=== PATIENT | male | born 1950 | race Caucasian/White ===

== ENCOUNTER 2024-01-17 23:32 | Observation (INO) | payer OTHER, SELFPAY ==
[2024-01-17 19:32] VITALS: BMI 32.4
[2024-01-17 19:33] VITALS: BP 164/90
[2024-01-17 19:59] LABS: % Basophils 0.8 % (0-2); % Eosinophils 0.6 % (0-6); % Immature Granulocytes 0.3 % (0-0.5); % Lymphocytes 7.3 % (20.5-51.1); % Monocytes 15.6 % (1.7-9.3); % Neutrophils 75.4 % (42.2-75.2); Absolute Basophils 0.1 10^3/uL (0-0.2); Absolute Eosinophils 0.1 10^3/uL (0-0.7); Absolute Lymphocytes 0.7 10^3/uL (1.2-3.4); Absolute Monocytes 1.4 10^3/uL (0.1-0.6); Absolute Neutrophils 6.8 10^3/uL (1.4-6.5); Hematocrit 49.6 % (39.0-52.0); Hemoglobin 17.1 g/dL (13.0-18.0); Mean Corp Hgb Conc. 34.5 g/dL (33.0-37.0); Mean Corpuscular Hgb 30.5 pg (27.0-31.0); Mean Corpuscular Volume 88.6 fL (80.0-94.0); Mean Platelet Volume 11.1 fL (7.4-10.4); Nucleated Red Blood Cells % 0 % (-); Platelet Count 108 10^3/uL (130-400); Red Cell Dist. Width 14.6 % (11.5-14.5)
[2024-01-17 20:04] LABS: Erythrocyte Sed Rate 16 mm/hour (0-20)
[2024-01-17 20:20] LABS: ALT (SGPT) 28 U/L (0-50); AST (SGOT) 36 U/L (17-59); Albumin 4.1 g/dl (3.5-5.0); Alkaline Phosphatase 77 U/L (38-126); Blood Urea Nitrogen 19 mg/dl (9-20); Calcium 9.4 mg/dl (8.4-10.2); Carbon Dioxide 21 mmol/L (22-30); Chloride 102 mmol/L (98-107); Glucose 87 mg/dl (70-99); Potassium 4.3 mmol/L (3.5-5.1); Sodium 138 mmol/L (135-145); Total Protein 6.7 g/dl (6.3-8.2); Uric Acid 4.3 mg/dl (3.5-8.5); eGFR > 60.00
[2024-01-17 20:22] LABS: NT-proBNP 250 pg/ml
--- NOTE | 2024-01-17 20:22 | ED.GENMED ---
History of Present Illness
General
Chief Complaint: Abdominal Symptoms
Source: patient
Exam Limitations: none
Time Seen by Provider: 01/17/24 19:58
Nursing documentation reviewed up to this point in time: agreed with
History of Present Illness
History of Present Illness:
The patient is a pleasant 73-year-old man who reports left upper abdominal pain and mid upper abdominal pain for several weeks. Patient reports that it seems to come on after he takes his morning medication and generally gets better by the
afternoon. However, over the last 3 days, the pain has been more intense, especially in his epigastric area and has been associated with nausea throughout the day. Patient denies chest pain. He reports the pain gets so bad that he feels short of
breath, however, he denies any specific cough. Patient reports normal bowel movements and denies constipation and diarrhea. Patient denies vomiting. Patient denies black and bloody stools.
Past History
Past History
ED Past Medical History: GERD, HTN, Hypercholesterolemia, NIDDM and Other (PE/DVT)
ED Past Surgical History: Orthopedic
Social History
Tobacco: Former smoker
Alcohol: Occasional
Drug: Other
Personal:
Living: alone
Employment: Other
Family History
Family History: Other
Review of Systems
Review of Systems
Allergies reviewed?: Yes
All Other Systems: ROS reviewed and negative except as documented in HPI and ROS
Constitutional: Reports fatigue
EENT: Reports no symptoms
Respiratory: Reports no symptoms
Cardiac: Reports no symptoms
ABD/GI: Reports abdominal pain, nausea and anorexia
: Reports no symptoms
Musculoskeletal: Reports no symptoms
Skin: Reports no symptoms
Neurological: Reports no symptoms
Endocrine: Reports no symptoms
Hematologic/Lymphatic: Reports no symptoms
Psychiatric: Reports no symptoms
Phy Exam
Physical Exam
Physical Exam:
Physical Exam
General: no apparent distress, not acutely ill
Neck: supple. no meningeal signs. normal psoterior pharynx
Heart: s1/s2 regular rate and rhythm, no murmur. equal radial pulses.
Lungs: no acute respiratory distress. clear bilaterally
Abdomen: Soft, epigastric tenderness, no rebound or guarding, no pulsatile mass. On rectal exam, stool is yellow-brown and Hemoccult negative
Neuro: alert and oriented. no focal neurological deficits
Skin: no rash
Psychiatric: well kept. interactive and cooperative
Extremities: no edema. no calf tenderness. negative homans. good distal pulses
Course
Orders/Labs/Results
Orders:
Orders
01/17/24 19:48
BNP [NT-proBNP] Urgent
C-Reactive Protein Urgent
Complete Blood Count/With Diff Urgent
Comprehensive Metabolic Panel Urgent
Erythrocyte Sed Rate Urgent
Lipase Urgent
Comment: ADD ON
Uric Acid Urgent
01/17/24 20:24
Add On- LAB Urgent
Tests Added?: lipase
01/17/24 21:00
Ondansetron Injectable [Zofran] 4 mg IV NOW STA
01/17/24 21:01
Mag Hydrox/Al Hydrox/Simeth [Maalox] 30 ml Phenobarb/Hyoscy/Atropine/Scop [] 10 ml Viscous Lidocaine 2% [Xylocaine Viscous Cup] 10 ml PO NOW
US Abdomen Complete/Upper Urgent
Comment:
Reason For Exam: epig pain, nausea
01/17/24 21:02
Electrocardiogram (*1) Urgent
Reason for Study: Abdominal Pain
EKG- Treatment ONCE
01/17/24 21:32
Mag Hydrox/Al Hydrox/Simeth [Maalox] 30 ml .ROUTE .STK-MED ONE
Phenobarb/Hyoscy/Atropine/Scop [] 10 ml .ROUTE .STK-MED ONE
01/17/24 21:33
Viscous Lidocaine 2% [Xylocaine Viscous Cup] 15 ml .ROUTE .STK-MED ONE
01/17/24 21:44
Troponin I Urgent
01/17/24 22:17
Pantoprazole [Protonix IV] 40 mg IV NOW STA
Abnormal Lab Results
01/17/24
19:48
RDW 14.6 H %
(11.5-14.5)
Plt Count 108 L 10^3/uL
(130-400)
MPV 11.1 H fL
(7.4-10.4)
Absolute Neuts (auto) 6.8 H 10^3/uL
(1.4-6.5)
Absolute Lymphs (auto) 0.7 L 10^3/uL
(1.2-3.4)
Absolute Monos (auto) 1.4 H 10^3/uL
(0.1-0.6)
Neutrophils % 75.4 H %
(42.2-75.2)
Lymphocytes % 7.3 L %
(20.5-51.1)
Monocytes % 15.6 H %
(1.7-9.3)
Carbon Dioxide 21 L mmol/L
(22-30)
Total Bilirubin 2.0 H mg/dl
(0.2-1.3)
C-Reactive Protein 70.90 H mg/L
(0.0-10.00)
01/17/24 19:48
01/17/24 19:48
Vital Signs
Initial and Last Documented VS:
Initial Vital Signs
Temp Pulse Resp BP Pulse Ox
98.3 F 100 24 164/90 95
01/17/24 19:33 01/17/24 19:33 01/17/24 19:33 01/17/24 19:33 01/17/24 19:33
Last Documented Vital Signs
Temp Pulse Resp BP Pulse Ox
98.3 F 100 24 157/78 95
01/17/24 19:33 01/17/24 19:33 01/17/24 19:33 01/17/24 21:08 01/17/24 19:33
MDM/Problems Addressed
Differential Diagnosis Includes:
Peptic ulcer disease, acute cholecystitis, biliary colic, gastritis, small bowel obstruction, acute coronary syndrome
MDM/Problems Addressed:
Patient presents with acute epigastric pain
Chronic conditions affecting care:
GERD
Acute Exacerbation and/or Progression of Chronic Illness:
Patient likely has acute exacerbation of chronic GERD
*Radiology
Radiology exam reviewed: radiology read reviewed
*Pulse Oximetry
Patient hypoxic: no
*EKG
Interpreted by ED Provider?: Yes
Interpretation: abnormal
Comparison EKG: changes noted (pvcs)
Rate: normal
Rhythm: sinus
[place]: left axis deviation
Interval: normal interval
QRS Pattern: normal QRS
Ischemia: non-specific ST changes
*Washroom Cleaner Interpretation
Rate: normal
Interpretation: normal
Rhythm: sinus
*Critical Care Note
Total Time (30-74mins, 75-104mins- exclusive of procedures): Not Applicable
Data Reviewed
Review of Other/Old Records Reveals: Discharge Summary (Discharge summary reviewed from hospitalist from 2022 when patient was admitted for complicated UTI and poorly controlled diabetes)
Source: patient
Patient Management
Discussion with other providers: Hospitalist and Other (Dr. Diaz Streeter agreed to evaluate patient on consult)
ED Attending Note
-
Portions of this chart may have been created with voice recognition software.� Occasional wrong word or��sound alike� substitutions may have occurred due to the inherent limitations of voice recognition software.
Discharge Plan
Departure
Patient Disposition: Admit
Date of Disposition: 01/17/24
Time of Disposition: 22:50
Admit to: Med/Surg
Presentation/result/management discussed w/ accepting MD/DO: Hospitalist
Patient with high blood pressure during this ER visit?: Yes
Condition: Good
Covid-19: Not Applicable
Discharge Problem:
Symptomatic gallbladder disease
Prescriptions:
New
lansoprazole [Prevacid] 30 mg capsule,delayed release(DR/EC)
30 mg PO DAILY Qty: 14 0RF
Rx Instructions:
Take in morning
ondansetron 4 mg tablet,disintegrating
4 mg PO TID PRN (Reason: nausea and vomiting) Qty: 14 0RF
No Action
Eliquis 2.5 mg Tablet
2.5 mg PO BID
losartan 25 mg Tablet
25 mg DAILY
allopurinol 100 mg Tablet
100 mg PO DAILY
simvastatin 20 mg Tablet
20 mg PO HS
(DME) OneTouch Verio test strips Strip
Qty: 100 0RF
Rx Instructions:
Test blood sugar before breakfast dinner and bedtime
E11.65
(DME) lancets [OneTouch Delica Lancets] 33 gauge Misc
Qty: 100 0RF
Rx Instructions:
Test before breakfast dinner and bedtime
e11.65
tamsulosin 0.4 mg Capsule
0.4 mg PO DAILY Qty: 30 0RF
folic acid 1 mg Tablet
1 mg PO DAILY Qty: 30 0RF
polyethylene glycol 3350 17 gram Powder In Packet
17 g PO DAILY Qty: 14 0RF
insulin aspart U-100 [Novolog FlexPen U-100 Insulin] 100 unit/mL (3 mL) Insulin Pen
10 unit SC AC Qty: 15 0RF
thiamine HCl (vitamin B1) 100 mg Tablet
100 mg PO BID Qty: 60 0RF
Januvia 100 mg Tablet
100 mg PO DAILY Qty: 30 0RF
levofloxacin 500 mg tablet
500 mg PO DAILY Qty: 8 0RF
insulin glargine [Lantus Solostar U-100 Insulin] 100 unit/mL (3 mL) insulin pen
18 unit SC DAILY Qty: 15 0RF
Rx Instructions:
Take in evenings. Adjust dose as needed per your provider.
Referrals:
UNKNOWN - PT DOES,NOT KNOW [Unknown Provider] -
Interventions
Interventions:
*Risk Screen - Suicide Last Done: 01/17/24 19:33
*General Assessment Last Done: 01/17/24 21:08
*Neglect/Abuse Screening Last Done: 01/17/24 19:33
*ED COVID-19 Vaccine History Last Done: 01/17/24 21:08
UF-Eyguur-Jlertnfflh Assessment Last Done: 01/17/24 21:08
Discharge Date and Time
Print Language: SINHALA
[2024-01-17 20:37] LABS: Lipase 80 U/L (23-300)
[2024-01-17 21:08] VITALS: BP 157/78
[2024-01-17] MEDS: MAALOX 50 PO (21:36)
[2024-01-17] MEDS: ZOFRAN 4 MG IV (21:36)
[2024-01-17 22:04] VITALS: BP 150/96
[2024-01-17 22:23] LABS: Troponin I 0.017 ng/ml
[2024-01-17] MEDS: PROTONIX IV 40 MG IV (22:32)
--- NOTE | 2024-01-17 23:45 | HPS.HSE ---
Addendum entered and electronically signed by Jean Plunkett DO 01/18/24 00:18:
Patient seen and examined independently. Agree with findings and plan as set forth by Winsome Zamudio PA-C.
Patient is a 73y M with PMH significant for HTN, DM-II and remote h/o PE who presents to abdominal pain x 3 days. Patient states that pain started on Wednesday and was initially in the L abdomen. Pain has since radiated to the mid abdomen /
epigastric region. He has had nausea and 'dry heaves'. He reports loose, non-bloody stools. Patient reports fever at home to 101. In the ED patient is afebrile. Abd US was done showing some mild GB wall thickening and stones.
Ass:
Abdominal Pain
Benign Hypertension
DM-II
History of PE
Rheumatoid Arthritis
History of Gout
Plan:
Observe overnight for further evaluation and treatment.
? acute cholecystitis; however, pain syndrome is not typical and US findings are not impressive.
Check CT A/P for further evaluation. ? colitis / diverticulitis.
IV Zosyn for now.
NPO, IVFs, supportive care including pain control, etc.
Hold Eliquis for now.
Follow for any new / worsening symptoms.
Original Note:
Family Physician
-
Family Physician: Keith Romero
Chief Complaint
-
Abdominal Pain
History of Present Illness
Patient is a 73 y/o male past medical history of diabetes, hypertension, and pulmonary embolism who presents with adbominal pain. Patient reports worsening abdominal pain over the past week. He initially noted the pain was worse in the morning
after taking his pills and then would improve, but over the past 3 days pain has been constant. He notes pain more on the left side and then radiating to the epigastric region. He reports nausea without vomiting. He reports chronic loose stools,
but note more diarrhea recently. Patient was afebrile upon arrival to the emergency department, but reports fevers at home as high as 101F.
Medical History
Past Medical History
Past Medical History: Reports Other
Additional Past Medical History:
Diabetes Mellitus, Type II
Essential Hypertension
Hyperlipidemia
Obesity
Pulmonary Embolism
Rheumatoid Arthritis
Gout
Past Surgical History: Reports Other
Additional Past Surgical History:
Bilateral TKA
Liposuction
Social History
Tobacco: Non-smoker
Alcohol: Occasional
Drug: None
Family History
Family History: Other (Mother: [place] at 47; Brother: [place] at 66)
Allergies / Home Medications
Allergies reflects when Allergies were last updated in [facility].
Home Medications with original date entered in [facility]
Allergy/Medication List:
Allergies
Allergy/AdvReac Type Severity Reaction Status Date / Time
No Known Allergies Allergy Verified 01/17/24 19:38
Home Medications
allopurinol 100 mg tablet 100 mg PO DAILY Gout 07/15/22
apixaban 2.5 mg tablet (Eliquis) 2.5 mg PO BID Blood clot prevention/tx 07/15/22
simvastatin 20 mg tablet 20 mg PO HS High cholesterol 07/15/22
tamsulosin 0.4 mg capsule 0.4 mg PO DAILY #30 caps 07/18/22
colchicine 0.6 mg tablet 0.6 mg PO BID 01/17/24
empagliflozin 10 mg tablet (Jardiance) 10 mg PO DAILY 01/17/24
gabapentin 300 mg capsule 300 mg PO BID 01/17/24
hydroxychloroquine 200 mg tablet 200 mg PO BID 01/17/24
losartan 100 mg-hydrochlorothiazide 25 mg tablet 1 tab PO DAILY 01/17/24
prednisone 2.5 mg tablet 2.5 mg PO DAILY 01/17/24
Review of Systems
-
A 12 point ROS was completed and negative except as noted: Yes
Constitutional: Reports Fever
Respiratory: Denies Cough or Trouble Breathing
Cardiac: Denies Chest Pain or Palpitations
Abdomen/GI: Reports See HPI
Physical Exam
Vital Signs
Vital Signs
Temp Pulse Resp BP Pulse Ox
98.3 F 100 24 150/96 93
01/17/24 19:33 01/17/24 19:33 01/17/24 19:33 01/17/24 22:04 01/17/24 21:30
Physical Exam
General: Comfortable and Conversant
HEENT: Anicteric and Moist mucous membranes
Respiratory: Clear and Non Labored Respirations
Cardiac: S1/S2, Regular Rhythm and Murmur (2/6 Systolic Murmur heard best at right upper sternal border)
GI: Soft, Tender (Left middle and lower regions with some voluntary guarding), Organomegaly (Mild hepatomegaly) and Other (Protuberant)
Rectal: Deferred by Provider
Musculoskeletal: No Clubbing, No Cyanosis and No Edema
Skin: Warm and Dry
Neuro: Awake, Oriented and Nonfocal/grossly intact
Psych: Calm
Laboratory Results
-
01/17/24 19:48
01/17/24 19:48
Laboratory Results
Total Bilirubin 2.0 mg/dl (0.2-1.3) H 01/17/24 19:48
AST 36 U/L (17-59) 01/17/24 19:48
ALT 28 U/L (0-50) 01/17/24 19:48
Alkaline Phosphatase 77 U/L (38-126) 01/17/24 19:48
Troponin I Cancelled 01/17/24 23:45
Lipase 80 U/L (23-300) 01/17/24 19:48
Abdomen Ultrasound:
1. Cholelithiasis and mild diffuse gallbladder wall thickening.
2. Moderate diffuse hepatic steatosis and mild hepatomegaly.
3. No sonographic evidence for biliary obstruction.
4. Moderate splenomegaly.
5. Moderate chronic bilateral renal disease.
Data Reviewed
-
Ultrasound: Report Reviewed by me
Lab Data: Labs Reviewed by me
Impression/Plan
-
Abdominal Pain, possibly differential include cholecystitis, gastritis, colitis/diverticulitis
-Surgery consulted by ED for possible cholecystitis given mild GB wall thickening on ultrasound
-Check Abd/Pelvis CT scan due to more left sided symptoms
-Continue Zosyn
-Continue NPO
Diabetes Mellitus, Type II
-Hold Jardiance while NPO
-Monitor sugars and continue coverage insulin
Essential Hypertension
-Continue losartan with hold parameters
Hyperlipidemia
-Hold simvastatin
Pulmonary Embolism
-Hold Eliquis pending surgical eval
Rheumatoid Arthritis
-Continue prednisone
-Hold hydroxychloroquine
Gout
-Continue allopurinol and colchicine
DVT proph: SCDs
Code Status: Full Code
[2024-01-18] VITALS (7 sets, daily range): BP systolic 103–140; BP diastolic 47–83
[2024-01-18] MEDS: OMNIPAQUE 50 ML PO (00:04)
[2024-01-18] MEDS: ZOSYN 50 IV (03:06)
[2024-01-18] MEDS: DILAUDID 0.25 MG IV (03:06)
[2024-01-18] MEDS: TYLENOL 650 MG PO (03:53)
[2024-01-18 05:42] LABS: Glucose - Point of Care 91 mg/dl (70-99)
[2024-01-18 07:37] LABS: Glucose - Point of Care 87 mg/dl (70-99)
[2024-01-18 08:11] LABS: Hematocrit 45.5 % (39.0-52.0); Hemoglobin 15.5 g/dL (13.0-18.0); Mean Corp Hgb Conc. 34.1 g/dL (33.0-37.0); Mean Corpuscular Hgb 30.6 pg (27.0-31.0); Mean Corpuscular Volume 89.7 fL (80.0-94.0); Mean Platelet Volume 11.3 fL (7.4-10.4); Platelet Count 101 10^3/uL (130-400); Red Blood Cell Count 5.07 10^6/uL (4.70-6.10); Red Cell Dist. Width 14.6 % (11.5-14.5); White Blood Cell Count 7.3 10^3/uL (4.8-10.8)
[2024-01-18] MEDS: FLOMAX 0.4 MG PO (08:36)
[2024-01-18] MEDS: ZYLOPRIM 100 MG PO (08:36)
[2024-01-18] MEDS: NEURONTIN 300 MG PO ×2 (08:36→21:16)
[2024-01-18] MEDS: DELTASONE 2.5 MG PO (08:37)
[2024-01-18] MEDS: NSS (PRESERVATIVE FREE) 10 ML IV (08:37)
[2024-01-18] MEDS: COLCHICINE 0.6 MG PO ×2 (08:37→21:15)
[2024-01-18] MEDS: COZAAR 100 MG PO (08:37)
[2024-01-18] MEDS: PROTONIX IV 40 MG IV (08:37)
--- NOTE | 2024-01-18 08:43 | CON.GS ---
Addendum entered and electronically signed by Dmitriy Tee MD 01/18/24 09:39:
Patient seen and examined.
Patient is a 73 yo M with a PMH of obesity, HTN, HLD, NIDDM, RA (on low-dose prednisone), provoked DVT/PE following orthopedic surgery (on Eliquis, LD > 48hrs) s/p bilateral TKA, and s/p liposuction, who presents with intermittent LEFT sided
abdominal discomfort. He states that his symptoms initially began on Wednesday (01/14) his symptoms have persisted since that time, however, currently he states that he is pain-free. He reports intermittent episodes of the preceding months.
Episodes would occur in the morning shortly following taking his pills. He reports LEFT sided and more central abdominal discomfort. Previous episodes would last a few hours before self resolving. No He reports a fever of 101 at home prior to
presentation, but none previously or since that time. Ne nausea or vomiting. No jaundice, pale stools, or tea colored urine.
Gen: NAD
Abd: obese, soft, NT/ND, non-peritoneal, negative Riley's sign, enlarged liver and spleen
Patient is a 73 yo M p/w intermittent episodes of LEFT sided abdominal discomfort.
Symptoms certainly not classic for cholecystitis given the location of his pain and radiographic imaging. That being said, patients with diabetes can present in an atypical fashion. Given the intermittent nature, presence of cholelithiasis, and
mildly elevated bilirubin, cholecystitis is certainly in the differential and the most likely cause for his symptoms. Differential also includes discomfort from splenomegaly, gastritis, or ulcerative disease. Ultrasound notable for mild wall
thickening, cholelithiasis, but negative sonographic Riley's sign. CT scan imaging notable for cholelithiasis, but largely normal-appearing gallbladder without significant wall thickness, edema, or inflammatory stranding. Currently symptoms have
resolved. Recommend continued medical management with bowel rest. Plan for HIDA scan to rule out cystic duct obstruction and help with diagnosis. If positive will plan on cholecystectomy. If negative would plan on trial of low fat diet and
discharge with GI follow-up. All questions answered.
--Keep NPO
--Check HIDA scan
--Continue to hold Eliquis pending imaging findings
--Will fractionate bilirubin
--Medical management as per primary team
Original Note:
Consultation
-
Date/Time Consultation Requested: 01/18/24136
Requesting Provider: Lizz
Medical History
-
Chief Complaint: Abdominal pain
History of Present Illness:
Mr. Wen is a 73 yo male with a h/o DM, PE on Eliquis (LD 01/15/24), and RA on low dose prednisone who presents with abdominal pain. He notes that he has had intermittent epigastric pain for the past 3 months which lasts for about 3-4 hours and then
self resolves. He notes his pain usually begins in the morning after taking his medications. On Wednesday (01/14) he developed a epigastric and left upper quadrant pain which was more severe than his typical pain and did not resolve. He noted some
nausea with dry heaves as well. He has not eaten or taken his medications since Wednesday given his symptoms. He reported a fever of 101 at home on presented to the ED but has been afebrile since admission. Today, he notes the pain has resolved. He
does have mild tenderness felt on the left abdomen with deep palpation to the right mid to upper abdomen on exam. He denies fevers, chills, acholic stools, or changes to his urine.
Past Medical History
Past Medical History: HTN, Hypercholesterolemia, NIDDM and Other (Provoked PE on Eliquis, RA, gout)
Past Surgical History: Orthopedic (BL TKA) and Other (abdominoplasty )
Social History
Tobacco: Non-Smoker
Alcohol: Occasional
Family History
Family History: Reviewed & Not Pertinent
Allergies / Home Medications
Allergy/AdvReac Type Severity Reaction Status Date / Time
No Known Allergies Allergy Verified 01/17/24 19:38
�Medication �Instructions �Recorded �Confirmed �Type
allopurinol 100 mg tablet 100 mg PO DAILY Gout 07/15/22 01/17/24 History
apixaban 2.5 mg tablet (Eliquis) 2.5 mg PO BID Blood clot 07/15/22 01/17/24 History
prevention/tx
simvastatin 20 mg tablet 20 mg PO HS High cholesterol 07/15/22 01/17/24 History
tamsulosin 0.4 mg capsule 0.4 mg PO DAILY #30 caps 07/18/22 01/17/24 Rx
colchicine 0.6 mg tablet 0.6 mg PO BID 01/17/24 01/17/24 History
empagliflozin 10 mg tablet 10 mg PO DAILY 01/17/24 01/17/24 History
(Jardiance)
gabapentin 300 mg capsule 300 mg PO BID 01/17/24 01/17/24 History
hydroxychloroquine 200 mg tablet 200 mg PO BID 01/17/24 01/17/24 History
losartan 100 1 tab PO DAILY 01/17/24 01/17/24 History
mg-hydrochlorothiazide 25 mg tablet
prednisone 2.5 mg tablet 2.5 mg PO DAILY 01/17/24 01/17/24 History
Review of Systems
-
History Source: Patient
All other systems: Negative unless noted
A 10 point review of systems was completed, and was negative except as per HPI.
Physical Exam
Vital Signs
Temp Pulse Resp BP Pulse Ox
98.2 F 76 16 119/68 94
01/18/24 07:15 01/18/24 07:15 01/18/24 07:15 01/18/24 07:15 01/18/24 07:15
01/17/24 01/18/24 01/19/24
06:59 06:59 06:59
Actual Weight 108.3 kg
Body Mass Index (BMI) 32.4
Lab Results
01/18/24 07:00
WBC 7.3 10^3/uL (4.8-10.8) 01/18/24 07:00
Hgb 15.5 g/dL (13.0-18.0) 01/18/24 07:00
Hct 45.5 % (39.0-52.0) 01/18/24 07:00
Plt Count 101 10^3/uL (130-400) L 01/18/24 07:00
Abs Immat Gran (auto) 0.0 10^3/uL (0-0.05) 01/17/24 19:48
Neutrophils % 75.4 % (42.2-75.2) H 01/17/24 19:48
Physical Exam
General: Well Developed, Well Nourished and No Apparent Distress
HEENT: Moist Mucous Membranes
Respiratory: Non Labored Respirations
GI: Soft, Non Distended, Tender (discomfort on left side when right hemiabdomen deeply palpated), Obese and Other (diastasis recti)
Skin: Warm and Dry; Negative Jaundice
Neuro: Awake, Alert and AO x 3
Psych: Calm
Data Reviewed
-
CT Scan: Image Personally Visualized and interpreted, Report Reviewed by me, Discussed with Physician and Discussed with Patient
Ultrasound: Image Personally Visualized and interpreted, Report Reviewed by me, Discussed with Physician and Discussed with Patient
Labs: Labs Reviewed by me, Discussed with Physician and Discussed with Patient
Old Records: Reviewed
Assessment / Plan
-
73 yo male with h/o DM, PE on Eliquis (LD 01/15/24), and RA on low dose prednisone presenting with 3 days of epigastric and left sided abdominal pain and fever at home. US with cholelithiasis noted and mild gallbladder wall thickening. CT without
significant acute abdominal pathology. Afebrile since presentation with stable vital signs. Bilirubin mildly elevated to 2.0 on presentation, down to 1.6 today with normal lipase. No leukocytosis present although neutrophils elevated. Location of
pain would be atypical for ACC or biliary colic but given episodic nature and associated nausea, etc his pain may be gallbladder related
--Keep NPO
--Check HIDA scan
--Continue to hold Eliquis pending imaging findings
--Will fractionate bilirubin
--Medical management as per primary team
[2024-01-18 08:52] LABS: ALT (SGPT) 26 U/L (0-50); AST (SGOT) 34 U/L (17-59); Albumin 3.4 g/dl (3.5-5.0); Alkaline Phosphatase 67 U/L (38-126); Blood Urea Nitrogen 18 mg/dl (9-20); Calcium 8.6 mg/dl (8.4-10.2); Carbon Dioxide 24 mmol/L (22-30); Chloride 100 mmol/L (98-107); Estimated Creatinine Clearance 68 ml/min; Glucose 78 mg/dl (70-99); Potassium 4.2 mmol/L (3.5-5.1); Sodium 137 mmol/L (135-145); Total Bilirubin 1.6 mg/dl (0.2-1.3); Total Protein 5.9 g/dl (6.3-8.2); eGFR > 60.00
[2024-01-18 09:23] LABS: Glycohemoglobin (HgbA1c) 5.4 % (4.0-5.6)
[2024-01-18 10:41] LABS: Direct Bilirubin 0.7 mg/dl (0.0-0.4)
[2024-01-18 13:01] LABS: Glucose - Point of Care 89 mg/dl (70-99)
--- NOTE | 2024-01-18 13:05 | W.PN.SURGUPD ---
Surgical Update
Surgical Update
S/B: Patient seen and examined at bedside. Still pain free and denies nausea.
A/R: HIDA normal, reviewed results with patient. Prior imaging without ACC. No OR planned today. Will do PO challenge with low fat diet and would continue LFD upon discharge given ?biliary colic. Ok for discharge from surgical standpoint if no
return of pain with eating. Would recommend continued outpatient GI work up and surgical follow up in the coming weeks.
--- NOTE | 2024-01-18 13:33 | W.PN.HOSP.TC ---
Today's Communication/Plan
-
trial diet
ppi iv
tentative dc if tolerating diet
Assessment / Plan
Assessment / Plan
Physical Exam
General: Comfortable and Conversant
HEENT: Anicteric and Moist mucous membranes
Respiratory: Clear and Non Labored Respirations
Cardiac: S1/S2, Regular Rhythm and Murmur (2/6 Systolic Murmur heard best at right upper sternal border)
GI: Soft, nontender, non distended
Rectal: Deferred by Provider
Musculoskeletal: No Clubbing, No Cyanosis and No Edema
Skin: Warm and Dry
Neuro: Awake, Oriented and Nonfocal/grossly intact
Psych: Calm
Abdominal Pain
-most likely 2/2 gastritis - appears to have been chronic issues for 3 months, with worsening (started prednisone 2.5 mg daily - 3 weeks ago)
-HIDA negative
-PPI IV
-GI outpatient
-Reach out to rheum outpatient for possible dc of steroids
-No indication for abx
-Trial LFT
-will benefit from
Diabetes Mellitus, Type II
-Monitor sugars and continue coverage insulin
-appreciate surg recs - no clear evidence of acute pathology in the abdomen
-On Mounjaro - 30lb intentional weight loss; no unintentional weight loss; is having BMs
Essential Hypertension
-Continue losartan with hold parameters
Hyperlipidemia
-Simvastatin
Pulmonary Embolism
-Eliquis
Rheumatoid Arthritis
-Continue prednisone
- hydroxychloroquine
Gout
-Continue allopurinol and colchicine
DVT proph: Eliquis
Code Status: Full Code
Anticipated Discharge: Within 24 hours
Subjective/Interval History
-
Date of Service: January 18, 2024
pain improved but still present
Objective Data
-
Labs:
Laboratory Results
01/18/24
07:00
WBC 7.3
Hgb 15.5
Hct 45.5
Plt Count 101 L
Sodium 137
Potassium 4.2
Chloride 100
Carbon Dioxide 24
BUN 18
Creatinine 1.2
Glucose 78
Calcium 8.6
Total Bilirubin 1.6 H
AST 34
ALT 26
Alkaline Phosphatase 67
Vital Signs:
Vital Signs
Temp Pulse Resp BP Pulse Ox
98.2 F 76 16 119/68 94
01/18/24 07:15 01/18/24 07:15 01/18/24 07:15 01/18/24 07:15 01/18/24 07:15
Review of Systems
-
History Source: Patient
All other systems: Not reviewed unless documented
Physical Exam
-
General: No Apparent Distress
HEENT: PERRLA
Respiratory: Clear to Auscultation; Negative Wheezes
Cardiac: Regular Rhythm and S1/S2
GI: Soft and Nontender
Musculoskeletal: No Edema
Skin: Warm and Dry; Negative Rash
Neuro: AO x 3
Psych: Calm
Data Reviewed
-
Diagnostic Radiology: Image personally visualized and interpreted and Report Reviewed by me
CT Scan: Image personally visualized and interpreted and Report Reviewed by me
Medical Tests (Nuc Med, Echo etc): Report Reviewed by me
Labs: Labs Reviewed by me
[2024-01-18 14:32] LABS: Troponin I < 0.012 ng/ml
--- NOTE | 2024-01-18 14:56 | CM ---
Addendum entered by Yesenia Meeks 01/18/24 15:00:
PCP: Keith Romero
Pharmacy: [facility]
Denies any housing/utilities/food/transportation insecurities.
Original Note:
Patient seen at bedside. Observation form explained & signed. In chart.
Dx: abdominal pain
Patient lives in a 1 story home alone, no steps to enter.
PLOF: Independent, no device, drives
no anticipated needs.
PLAN: Discharge to home when stable, no needs.
Patient drove to hospital.
[2024-01-18 17:26] LABS: Glucose - Point of Care 94 mg/dl (70-99)
[2024-01-18] MEDS: LIPITOR 10 MG PO (17:35)
[2024-01-18 20:10] LABS: Troponin I < 0.012 ng/ml
[2024-01-18] MEDS: PLAQUENIL 200 MG PO (21:16)
[2024-01-18] MEDS: ELIQUIS 2.5 MG PO (21:17)
[2024-01-18] MEDS: ZOFRAN 4 MG IV (21:50)
--- NOTE | 2024-01-18 21:50 | RR ---
A Rapid Response was called on this patient, please see Rapid Response form.
[2024-01-18 22:01] LABS: Glucose - Point of Care 107 mg/dl (70-99)
[2024-01-18] MEDS: CARDIZEM 5 MG IV (22:01)
[2024-01-18] MEDS: XOPENEX 1.25 MG INHALANT SOLUTION INH (22:02)
[2024-01-18] MEDS: MORPHINE SULFATE 1 MG IV (22:05)
[2024-01-18] MEDS: NITROSTAT (SUBLINGUAL) 0.4 MG SL (22:15)
[2024-01-18 22:19] LABS: Hematocrit 47.9 % (39.0-52.0); Hemoglobin 16.7 g/dL (13.0-18.0); Mean Corp Hgb Conc. 34.9 g/dL (33.0-37.0); Mean Corpuscular Hgb 30.5 pg (27.0-31.0); Mean Corpuscular Volume 87.4 fL (80.0-94.0); Mean Platelet Volume 10.6 fL (7.4-10.4); Platelet Count 108 10^3/uL (130-400); Red Blood Cell Count 5.48 10^6/uL (4.70-6.10); Red Cell Dist. Width 14.6 % (11.5-14.5); White Blood Cell Count 7.8 10^3/uL (4.8-10.8)
[2024-01-18] MEDS: PEPCID 20 MG IV (22:19)
[2024-01-18 22:24] LABS: INR 1.08; PT 13.8 Sec (11.4-14.6)
[2024-01-18 22:25] LABS: ALT (SGPT) 30 U/L (0-50); APTT 28.2 Sec (23.4-35.0); AST (SGOT) 40 U/L (17-59); Albumin 3.7 g/dl (3.5-5.0); Alkaline Phosphatase 83 U/L (38-126); Blood Urea Nitrogen 20 mg/dl (9-20); Calcium 9.5 mg/dl (8.4-10.2); Carbon Dioxide 26 mmol/L (22-30); Chloride 100 mmol/L (98-107); Estimated Creatinine Clearance 68 ml/min; Glucose 100 mg/dl (70-99); Potassium 4.1 mmol/L (3.5-5.1); Sodium 135 mmol/L (135-145); Total Bilirubin 1.7 mg/dl (0.2-1.3); Total Protein 6.1 g/dl (6.3-8.2); eGFR > 60.00
--- NOTE | 2024-01-18 22:25 | W.PN.UPDATE ---
Update Note
Progress Note Update
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
Patient complained of chest pain associated with difficult breathing, describes his pain as pressure at the sternum area, initially he mentioned as non radiating, later mentioned that radiated the LT shoulder for few seconds.
Afebrile, BP 129/89, SPO2 96% on 2 L of O2, RR 22, hr 160s to 170s.
Patient admitted with abdominal epigastric pain, Current sternum pressure not clear if it GERD related pain versus cardiac, last troponin x2 are neg.
Cardizem 5 mg IV given, Nitro sublingual given x1 with no relief, morphine 1 mg IV, one time, and Xopenex for SOB
-Patient still looks in distress and complaining of chest pain 11/02, hr still in 160s. EKG shows SVT.
-Will repeat troponin, chest CT PE, cbc, bmp, mag.
-One time IV Pepcid given.
- around 20 mins after Hr down to 80s, and pain subsides.
- Transfer to IMU
-Patient also requested to change from full code to limited DNR. NO intubation or ventilator but he would like to receive CPR and pressors
Repeated Troponin is neg
Chest CT Shows
1. No CTA evidence for acute central pulmonary arterial embolus.
2. MILD PULMONARY ARTERIAL HYPERTENSION with distention of the central pulmonary arteries.
3. Moderate calcification in the aortic valve.
4. Moderate mediastinal lipomatosis.
5. Mildly decreased bilateral lung volumes with a mild to moderate amount of scarring and subsegmental atelectasis in both lower lungs.
[2024-01-18 22:37] LABS: Troponin I 0.013 ng/ml
--- NOTE | 2024-01-18 22:50 | PTCARENOTE ---
Pt complained of SOB, nausea and chest pressure at 2150, diaphoretic and in distress. VS 129/89, Hr166, T 100.3, RR 24, pox 94%RA, blood sugar 107. Rapid response called, see MAR for med administration. chest pain resolved within the 5 min of nitro
administration. Pt transferred to ICU.
[2024-01-18 23:04] LABS: Magnesium 2.1 mg/dl (1.6-2.3)
--- NOTE | 2024-01-18 23:50 | PTCARENOTE ---
rec`d pt from the med surg floor as a rapid response. report of chest pain and SOB. HR 170s. POX 90s. stat meds given by previous RN (see MAR). CT and chest x ray done. pt now admin to ICU. pt states he is not in pain anymore. SR to ST on monitor.
HR 90s-100s. POX 92-94% on 4L. afebrile. diminished lung sounds. pt uses urinal. clear, yellow urine. left AC 20 and left W 20 flushed and patent. pt states he does not want to intubated for future reference. pt also states he does not want any
family notified. call davalos in reach, safe environment maintained.
[2024-01-19] VITALS (22 sets, daily range): BP systolic 93–148; BP diastolic 47–94; BMI 33.3
[2024-01-19 03:48] LABS: Hematocrit 44.9 % (39.0-52.0); Hemoglobin 15.6 g/dL (13.0-18.0); Mean Corp Hgb Conc. 34.7 g/dL (33.0-37.0); Mean Corpuscular Hgb 30.7 pg (27.0-31.0); Mean Corpuscular Volume 88.4 fL (80.0-94.0); Mean Platelet Volume 10.9 fL (7.4-10.4); Platelet Count 106 10^3/uL (130-400); Red Blood Cell Count 5.08 10^6/uL (4.70-6.10); Red Cell Dist. Width 14.6 % (11.5-14.5); White Blood Cell Count 6.8 10^3/uL (4.8-10.8)
[2024-01-19 04:08] LABS: ALT (SGPT) 31 U/L (0-50); AST (SGOT) 38 U/L (17-59); Albumin 3.3 g/dl (3.5-5.0); Alkaline Phosphatase 80 U/L (38-126); Blood Urea Nitrogen 19 mg/dl (9-20); Calcium 9.2 mg/dl (8.4-10.2); Carbon Dioxide 27 mmol/L (22-30); Chloride 102 mmol/L (98-107); Estimated Creatinine Clearance 68 ml/min; Glucose 123 mg/dl (70-99); Sodium 136 mmol/L (135-145); Total Bilirubin 1.4 mg/dl (0.2-1.3); Total Protein 5.8 g/dl (6.3-8.2); eGFR > 60.00
[2024-01-19 04:20] LABS: Troponin I 0.016 ng/ml
[2024-01-19 07:06] LABS: Glucose - Point of Care 109 mg/dl (70-99)
[2024-01-19] MEDS: ZYLOPRIM 100 MG PO (07:50)
[2024-01-19] MEDS: FLOMAX 0.4 MG PO (07:50)
[2024-01-19] MEDS: COZAAR 100 MG PO (07:50)
[2024-01-19] MEDS: ELIQUIS 2.5 MG PO (07:50)
[2024-01-19] MEDS: PLAQUENIL 200 MG PO (07:51)
[2024-01-19] MEDS: NEURONTIN 300 MG PO (07:51)
[2024-01-19] MEDS: COLCHICINE 0.6 MG PO (07:51)
[2024-01-19] MEDS: PROTONIX IV 40 MG IV (07:52)
[2024-01-19] MEDS: NSS (PRESERVATIVE FREE) 10 ML IV (07:52)
[2024-01-19] MEDS: DELTASONE 2.5 MG PO (08:19)
--- NOTE | 2024-01-19 10:20 | PTCARENOTE ---
ECHO in process. Patient's daughter updated over the phone. Vitals stable.
--- NOTE | 2024-01-19 11:55 | PTCARENOTE ---
Patient downgraded to tele.
[2024-01-19 12:30] LABS: Glucose - Point of Care 116 mg/dl (70-99)
--- NOTE | 2024-01-19 15:18 | W.PN.HOSP.TC ---
Addendum entered and electronically signed by Chris Marcial MD 01/20/24 18:03:
[id number]
Addendum entered and electronically signed by Chris Marcial MD 01/19/24 16:00:
Eliquis was started 6 years ago s/p knee replacement with PE. provoked pe - most likely does not need further continuation of eliquis therefore will not change anything and advised patient to speak to cpp regarding discontinuation.
Original Note:
Today's Communication/Plan
-
ppi daily
cards, pulm outpatient eval
pcp f/u
surgery f/u for reducible ?hernia
f/u cbc, cmp in 1 week
Assessment / Plan
Assessment / Plan
Physical Exam
General: Comfortable and Conversant
HEENT: Anicteric and Moist mucous membranes
Respiratory: Clear and Non Labored Respirations
Cardiac: S1/S2, Regular Rhythm and Murmur (2/6 Systolic Murmur heard best at right upper sternal border)
GI: Soft, tender to midepigastric area; non distended;
Musculoskeletal: No Clubbing, No Cyanosis and No Edema
Skin: Warm and Dry
Neuro: Awake, Oriented and Nonfocal/grossly intact
Psych: Calm
Abdominal Pain
-most likely 2/2 gastritis - appears to have been chronic issues for 3 months, with worsening (started prednisone 2.5 mg daily - 3 weeks ago); tender to midepigastric area
-HIDA negative
-PPI IV - switch to pantoprazole daily
-GI outpatient
-Reach out to rheum outpatient for possible dc of steroids
-No indication for abx
-tolerating diet
-will benefit from
Diabetes Mellitus, Type II
-Monitor sugars and continue coverage insulin
-appreciate surg recs - no clear evidence of acute pathology in the abdomen
-On Mounjaro - 30lb intentional weight loss; no unintentional weight loss; is having BMs
Chest pain, resolved on its own
-does not appear to be active ischemia
-trops flat, echo without wall motion abnormality
-PE series neg
-should benefit from stress test possibility outpatient; f/u cards outpatient
#PAH
#most likely unerlying mohan/ohs
-sleep study, pulm eval outpatient
Essential Hypertension
-Continue losartan with hold parameters
Hyperlipidemia
-Simvastatin
Pulmonary Embolism
-Eliquis
Rheumatoid Arthritis
-Continue prednisone
- hydroxychloroquine
Gout
-Continue allopurinol and colchicine
DVT proph: Eliquis
Code Status: Full Code
More than 30 minutes spent in discharge including
Final examination of the patient
Summarizing hospital stay
Instructions for continuing care to all relevant caregivers
Preparation of discharge records, prescriptions, and referral forms
Total time spent (35 in minutes):
Anticipated Discharge: Today
Subjective/Interval History
-
Date of Service: January 19, 2024
had chest pain overnight - subsided on its own. states it happened when he leaned forward.
Objective Data
-
Labs:
Laboratory Results
01/19/24
03:33
WBC 6.8
Hgb 15.6
Hct 44.9
Plt Count 106 L
Sodium 136
Potassium 4.0
Chloride 102
Carbon Dioxide 27
BUN 19
Creatinine 1.2
Glucose 123 H
Calcium 9.2
Total Bilirubin 1.4 H
AST 38
ALT 31
Alkaline Phosphatase 80
Vital Signs:
Vital Signs
Temp Pulse Resp BP Pulse Ox
99.1 F 82 18 116/88 91
01/19/24 12:20 01/19/24 14:00 01/19/24 14:00 01/19/24 14:00 01/19/24 14:00
I&O
01/18/24 01/19/24 01/20/24
06:59 06:59 06:59
Intake Total 600 / 600
Output Total 550 / 550 150 / 150
Balance 50 / 50 -150 / -150
Review of Systems
-
History Source: Patient
All other systems: Not reviewed unless documented
Physical Exam
-
General: No Apparent Distress
HEENT: PERRLA
Respiratory: Clear to Auscultation; Negative Wheezes
Cardiac: Regular Rhythm and S1/S2
GI: Soft and Nontender
Musculoskeletal: No Edema
Skin: Warm and Dry; Negative Rash
Neuro: AO x 3
Psych: Calm
--- NOTE | 2024-01-19 15:40 | W.DS.TRANS ---
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
-
Discharge Instructions:
Discharge Diagnosis/Procedures gastritis
Diet Low Fat,Low Cholesterol
Activity As tolerated
Blood Work cbc, cmp in 1 week with pcp
Others Tests sleep study, possible cardiac stress test
Instructions:
Stand-Alone Forms:
Changes to Home Medications: Yes
Discharge Medications:
DC Medications w/original date entered in [email or web address]
allopurinol 100 mg tablet 100 mg PO DAILY Gout 07/15/22
apixaban 2.5 mg tablet (Eliquis) 2.5 mg PO BID Blood clot prevention/tx 07/15/22
simvastatin 20 mg tablet 20 mg PO HS High cholesterol 07/15/22
tamsulosin 0.4 mg capsule 0.4 mg PO DAILY #30 caps 07/18/22
colchicine 0.6 mg tablet 0.6 mg PO BID 01/17/24
empagliflozin 10 mg tablet (Jardiance) 10 mg PO DAILY 01/17/24
gabapentin 300 mg capsule 300 mg PO BID 01/17/24
hydroxychloroquine 200 mg tablet 200 mg PO BID 01/17/24
losartan 100 mg-hydrochlorothiazide 25 mg tablet 1 tab PO DAILY 01/17/24
prednisone 2.5 mg tablet 2.5 mg PO DAILY 01/17/24
pantoprazole 40 mg tablet,delayed release 40 mg PO DAILY #30 tabs 01/19/24
Home Medication Changes
pantoprazole 40 mg tablet,delayed release 40 mg PO DAILY #30 tabs 01/19/24
Pending Results: No
--- NOTE | 2024-01-19 16:14 | PTCARENOTE ---
Discharge orders placed. VSS. Awaiting repeat troponin level.
[2024-01-19 16:16] LABS: Troponin I < 0.012 ng/ml
--- NOTE | 2024-01-19 16:25 | CM ---
Reviewed chart, patient cleared for discharge. Spoke with patient, reviewed IMM. He is agreeable. He confirmed that he has a ride home.
Plan: Case management will continue to follow and assist with discharge planning. Home.
--- NOTE | 2024-01-19 16:56 | PTCARENOTE ---
Patient discharged home with belongings. Discharge instructions and medication list discussed in depth. All questions answered.
== END 2024-01-19 17:03 | disposition home or self-care (01) ==
LOC: ICU 23:32
PROVIDERS: Emergency Medicine; Physician Assistant Medical; ADMITTING PHYSICIAN Hospitalist; ATTENDING PHYSICIAN Internal Medicine; EMERGENCY PHYSICIAN Emergency Medicine; FAMILY PHYSICIAN Family Medicine; OTHER PHYSICIAN Surgery
DX: K29.70 Gastritis, unspecified, without bleeding (principal); R10.9 Unspecified abdominal pain; K21.9 Gastro-esophageal reflux disease without esophagitis; E78.00 Pure hypercholesterolemia, unspecified; I10 Essential (primary) hypertension; E11.9 Type 2 diabetes mellitus without complications; R11.0 Nausea; M06.9 Rheumatoid arthritis, unspecified; M10.9 Gout, unspecified; E66.9 Obesity, unspecified; J98.11 Atelectasis; R93.89 Abnormal findings on diagnostic imaging of other specified body structures; R07.9 Chest pain, unspecified; I27.21 Secondary pulmonary arterial hypertension; I49.3 Ventricular premature depolarization; I47.10 Supraventricular tachycardia, unspecified; I49.1 Atrial premature depolarization; I35.0 Nonrheumatic aortic (valve) stenosis; K76.0 Fatty (change of) liver, not elsewhere classified; R16.2 Hepatomegaly with splenomegaly, not elsewhere classified; K80.20 Calculus of gallbladder without cholecystitis without obstruction; I26.99 Other pulmonary embolism without acute cor pulmonale; K82.8 Other specified diseases of gallbladder; K57.32 Diverticulitis of large intestine without perforation or abscess without bleeding; I70.0 Atherosclerosis of aorta; K40.90 Unilateral inguinal hernia, without obstruction or gangrene, not specified as recurrent; K42.9 Umbilical hernia without obstruction or gangrene; M47.816 Spondylosis without myelopathy or radiculopathy, lumbar region; Z68.33 Body mass index [BMI] 33.0-33.9, adult; Z96.653 Presence of artificial knee joint, bilateral; Z82.49 Family history of ischemic heart disease and other diseases of the circulatory system; Z79.01 Long term (current) use of anticoagulants; Z79.52 Long term (current) use of systemic steroids; Z79.84 Long term (current) use of oral hypoglycemic drugs; Z79.4 Long term (current) use of insulin; Z86.718 Personal history of other venous thrombosis and embolism; Z86.711 Personal history of pulmonary embolism; Z87.891 Personal history of nicotine dependence
CPT/HCPCS: 71045; 71275; 74177; 76700; 78226; 80053; 82248; 82962; 83036; 83690; 83735; 83880; 84484; 84550; 85025; 85027; 85610; 85652; 85730; 86140; 87070; 93005; 93306; 94640; 96374; 96375; 99285; A9537; G0378; Q9967